=== PATIENT | female | born 1975 | race Caucasian/White ===

== ENCOUNTER 2017-05-20 14:39 | Emergency (ER) | payer MEDICAID ==
[~2017-05-20] VITALS: Ht 180.3 cm; Wt 119.3 kg
[2017-05-20 15:03] VITALS: BP 118/84
[2017-05-20] MEDS ORDERED: KETOROLAC TROMETH 60MG/2ML VIAL IM ONE (16:15)
== END 2017-05-20 17:32 | disposition home or self-care (01) ==
LOC: ER 14:49
DX: S70.01XA Contusion of right hip, initial encounter (principal); S40.011A Contusion of right shoulder, initial encounter; M25.461 Effusion, right knee; Z88.6 Allergy status to analgesic agent; W01.0XXA Fall on same level from slipping, tripping and stumbling without subsequent striking against object, initial encounter; Z91.81 History of falling; Y93.01 Activity, walking, marching and hiking; Y92.59 Other trade areas as the place of occurrence of the external cause; Y99.8 Other external cause status
CPT/HCPCS: 29505; 73030; 73110; 73502; 73564; 96372; 99284; J1885

== ENCOUNTER → 2021-05-31 | Outpatient (CLI) | payer MEDICAID ==
[~2021-05-31] VITALS: Ht 180.3 cm; Wt 140.2 kg
[~2021-05-31] MED LIST: LEVO100T8 PO
== END | disposition home or self-care (01) ==
LOC: Rad HDHVI 12:51
PROVIDERS: ATTEND Internal Medicine Cardiovascular Disease
DX: R00.2 Palpitations (principal); R00.0 Tachycardia, unspecified; R42 Dizziness and giddiness; E66.8 Other obesity; R06.02 Shortness of breath; R07.89 Other chest pain; Z82.49 Family history of ischemic heart disease and other diseases of the circulatory system
CPT/HCPCS: 78452; 93017; 96374; A9500